=== PATIENT | male | born 1975 ===

== ENCOUNTER 2016-02-24 08:48 | Emergency (ER) | payer OTHER ==
[2016-02-24 09:25] VITALS: BP 125/98
--- NOTE | 2016-02-24 10:21 | RAD ---
HISTORY: Medial left knee pain COMPARISONS: None VIEWS: 4, Frontal, lateral, axial, and oblique views of the left knee FINDINGS: BONE DENSITY: Normal. BONES: There is no displaced fracture. JOINTS: There is minimal patellofemoral osteophyte formation. There is no suprapatellar joint effusion or lipohemarthrosis. ALIGNMENT: There is no dislocation. SOFT TISSUES: Unremarkable. OTHER FINDINGS: None. IMPRESSION: NO ACUTE OSSEOUS INJURY. IF SYMPTOMS PERSIST, RECOMMEND REPEAT IMAGING.
--- NOTE | 2016-02-24 10:24 | RAD ---
HISTORY: Pain along lateral aspect of left ankle COMPARISONS: None VIEWS: 4, Frontal, lateral, and oblique views of the left ankle FINDINGS: BONE DENSITY: Normal. BONES: There is no displaced fracture. JOINTS: There is no arthropathy. There is a small joint effusion ALIGNMENT: There is no dislocation. SOFT TISSUES: There is soft tissue swelling predominantly over the lateral aspect of the ankle. OTHER FINDINGS: None. IMPRESSION: SOFT TISSUE SWELLING WITH A SMALL JOINT EFFUSION. NO ACUTE OSSEOUS INJURY. IF SYMPTOMS PERSIST, RECOMMEND REPEAT IMAGING.
--- NOTE | 2016-02-24 10:26 | RAD ---
HISTORY: Left foot pain COMPARISONS: None VIEWS: 3, Frontal, lateral, and oblique views of the left foot FINDINGS: BONE DENSITY: Normal. BONES: There is no displaced fracture. JOINTS: There is no arthropathy. ALIGNMENT: There is no dislocation. SOFT TISSUES: Unremarkable. OTHER FINDINGS: None. IMPRESSION: NO ACUTE OSSEOUS INJURY. IF SYMPTOMS PERSIST, RECOMMEND REPEAT IMAGING.
--- NOTE | 2016-02-24 10:58 | UC ---
Bartolome Wade SooYoung, [facility] on 02/24/16 at 0938 . Lower Extremity/Ankle HPI - HPI Summary HPI Summary: NOTE: A 40 y/o M, active runner, with L ankle swelling and tenderness for last 3 days. 5 out of 10 pain. Vital signs stable. Rare EtOH use, non-smoker. PMHx: hyperthyroid. NURSE'S NOTE: woke up 3 days ago with a swollen left ankle. denies trauma or injury to the ankle. c/o tenderness and swelling. no redness or warmth noted. [ End ] IN ROOM NOTE: A 40 y/o M presents to [facility] [place] with c/o L ankle swelling and pain onset three days ago. It becomes less painful as he continues to walk on it. Pt states he had stopped running in the past 3 weeks due to knee pain. Pt drove back from [place] yesterday. The ankle began getting swollen while in [place]. Denies SOB, calf pain. No PMHx of blood clots. PCP is Dr. Araujo, last seen approx one month ago. - History of Current Complaint Chief Complaint: UCLowerExtremity Stated Complaint: SWOLLEN ANKLE Time Seen by Provider: 02/24/16 09:37 Hx Obtained From: Patient Onset/Duration: Sudden Onset, Lasting Days, Still Present Severity Currently: Moderate Pain Intensity: 5 Pain Scale Used: 0-10 Numeric - Allergies/Home Medications Allergies/Adverse Reactions: Allergies Allergy/AdvReac Type Severity Reaction Status Date / Time No Known Allergies Allergy Verified 02/24/16 09:26 Home Medications: Home Medications Levothyroxine TAB* [Synthroid TAB*] 25 mcg PO 0800 02/24/16 [History Confirmed 02/24/16] Venlafaxine HCl [Effexor XR-] 37.5 mg PO DAILY 02/24/16 [History Confirmed 02/23] PMH/Surg Hx/FS Hx/Imm Hx Previously Healthy: Yes Endocrine History Of: Reports: Thyroid Disease - Surgical History Surgical History: None - Family History Known Family History: Positive: Cardiac Disease - mother, in her 70s - Social History Occupation: Unemployed - OTHER Lives: With Family Alcohol Use: Rare Substance Use Type: None Smoking Status (MU): Never Smoked Tobacco Review of Systems Respiratory: Negative Musculoskeletal: Arthralgia - L ankle, Edema - L ankle All Other Systems Reviewed And Are Negative: Yes Physical Exam Triage Information Reviewed: Yes Appearance: Well-Appearing, No Pain Distress, Well-Nourished Vital Signs: Initial Vital Signs Temp 97.1 F 02/24/16 09:17 Pulse 58 02/24/16 09:17 Resp 16 02/24/16 09:17 BP 125/98 02/24/16 09:17 Pulse Ox 97 02/24/16 09:17 Vital Signs Reviewed: Yes Eyes: Positive: Conjunctiva Clear ENT: Positive: Hearing grossly normal, Pharynx normal, TMs normal. Negative: Muffled/hoarse voice Neck: Positive: Supple, No Lymphadenopathy Respiratory: Positive: Chest non-tender, Lungs clear, Normal breath sounds, No respiratory distress Cardiovascular: Positive: RRR, No Murmur Abdomen Description: Positive: Nontender, No Organomegaly, Soft Bowel Sounds: Positive: Present Musculoskeletal: Positive: Strength Intact, Other: - MUÑOZ; MILD LATERAL PAIN WITH AMBULATION, L ANKLE IS SWOLLEN LATERALLY AND SLIGHTLY OVER THE DORSUM OF FOOT, WITH SLIGHT SWELLING OF MEDIAL ASPECT, TENDERNESS OF TALOFIBULA LIGAMENT; L KNEE SHOWS NO EDEMA OR INSTABILITY, SOME TENDERNESS OVER JOINT LINE; NEG NNEKA'S; L CALF IS NONTENDER AND NOT SWOLLEN Neurological: Positive: Alert Psychological: Positive: Age Appropriate Behavior Skin: Negative: rashes Diagnostics - Radiology KNEE XR Xray Interpretation: No Acute Changes Radiology Interpretation Completed By: Radiologist - IMPRESSION: No acute osseous injury. If symptoms persist, recommend repeat imaging. FOOT XR Xray Interpretation: No Acute Changes - IMPRESSION: No acute osseous injury. If symptoms persist, recommend repeat imaging. Radiology Interpretation Completed By: Radiologist ANKLE XR Xray Interpretation: Positive (See Comments) Radiology Interpretation Completed By: Radiologist - IMPRESSION: Soft tissue swelling with small joint effusion. No acute osseous injury. If symptoms persist , recommend repeat imaging. Lower Extremity Course/Dx - Course Course Of Treatment: Discussed possibility of blood clot with pt. His PE is most consistent with ankle sprain. He knows to f/u for any calf tenderness, swelling or SOB. - Differential Dx/Diagnosis Differential Diagnosis/HQI/PQRI: Fracture (Closed) - ANKLE, Sprain - ANKLE Provider Diagnoses: LEFT LATERAL COLLATERAL LIGAMENT ANKLE SPRAIN. Discharge - Discharge Plan Condition: Stable Disposition: HOME Patient Education Materials: Ankle Sprain (ED), Ankle Exercises (GEN) Referrals: Amor Araujo MD [Primary Care Provider] - Additional Instructions: WE DISCUSSED: USE AN ROSS WRAP OR COMPRESSION BANDAGE. KEEP ANKLE ELEVATED. NOTE; THE MORE SWELLING, THE LONGER IT WILL TAKE TO HEAL. IF IT HURTS, DON'T DO IT. USE HEAT TO APPLY ICE TO AREA AFTER WORK. IF YOU HAVE A CHANGE OF SYMPTOMS, REDNESS TO YOUR LEG, YOU NEED TO BE RE- EVALUATED WITH ULTRASOUND TO RULE OUT A BLOOD CLOT. GO TO [facility] FOR A TIGHT LEFT ANKLE BRACE TO USE WHILE EXERCISING UNTIL YOU ARE PAIN FREE. ELEVATE ANKLE MUCH POSSIBLE. The documentation as recorded by the Bartolome banuelos SooYoung accurately reflects the service I personally performed and the decisions made by me, Anthony Rodrigues MD.
== END 2016-02-24 11:05 | disposition home or self-care (01) ==
LOC: UCEAST 08:48
DX: S93.402A Sprain of unspecified ligament of left ankle, initial encounter (principal); E05.90 Thyrotoxicosis, unspecified without thyrotoxic crisis or storm; X58.XXXA Exposure to other specified factors, initial encounter; Y92.9 Unspecified place or not applicable
CPT/HCPCS: 99202; G0463